=== PATIENT | female | born 1980 | race African-American/Black ===

== ENCOUNTER 2020-07-30 10:05 | Emergency (ER) | payer MEDICAID ==
--- NOTE | 2020-07-30 10:29 | EDM.PDOC ---
ED HPI GENERAL MEDICAL PROBLEM - General Chief Complaint: General Stated Complaint: MEDICAL VIA NORTH Time Seen by Provider: 07/30/20 10:30 Source of Information: Reports: Patient, RN Notes Reviewed History Limitations: Reports: No Limitations - History of Present Illness INITIAL COMMENTS - FREE TEXT/NARRATIVE: 9-year-old female discerned about the possibility of Covid represented by a constellation of complaints and symptoms going back to her daughter who recently visited [place] and came back with cold symptoms and some fever. Within the next day or 2 the patient then had cold symptoms respiratory in nature and possible fever. Thinks she also may have a change now in the last couple of days with her smell and taste although not dramatic. Her appetite is diminished but she still eats. She was at work and apparently walked up a bunch of steps at work and when she got to the top she was short of breath had some chest tightness was felt diaphoretic and weak. She regularly does this at work and today is the first time that she had these symptoms even though she is very heavy. Cardiac disease noted. No pulmonary problems. Of diabetes on Metformin. She is also hypertensive as well as obese Duration: Day(s):, Getting Worse Severity: Moderate Improves with: Reports: None Worsens with: Reports: None Context: Reports: Activity Associated Symptoms: Reports: Chest Pain, Cough, Diaphoresis, Loss of Appetite, Shortness of Breath - Related Data Allergies Allergy/AdvReac Type Severity Reaction Status Date / Time No Known Allergies Allergy Verified 07/30/20 10:16 Home Meds: Home Meds Aspirin 81 mg PO DAILY 07/30/20 [History] Furosemide 20 mg PO DAILY 07/30/20 [History] Sertraline [Zoloft] 100 mg PO BEDTIME 07/30/20 [History] metFORMIN [Glucophage] 2,000 mg PO BIDMEALS 07/30/20 [History] Past Medical History Cardiovascular History: Reports: Hypertension 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: Neurological History: Reports: Other (See Below) 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 Psychiatric History: Reports: PTSD Endocrine/Metabolic History: Reports: Diabetes, Type II Dermatologic History: Reports: Eczema - Infectious Disease History Infectious Disease History: Reports: Chicken Pox Social & Family History - Tobacco Use Tobacco Use Status *Q: Never Tobacco User - Caffeine Use Caffeine Use: Reports: Tea - Recreational Drug Use Recreational Drug Use: No ED ROS GENERAL - Review of Systems Review Of Systems: See Below Constitutional: Reports: Fever, Chills, Malaise, Weakness, Diaphoresis HEENT: Reports: No Symptoms Respiratory: Reports: Shortness of Breath Cardiovascular: Reports: Chest Pain, Blood Pressure Problem, Dyspnea on Exertion Endocrine: Reports: Fatigue GI/Abdominal: Reports: Other (She notes hunger pains but does not want to eat.) : Reports: No Symptoms Musculoskeletal: Reports: No Symptoms Skin: Reports: No Symptoms Neurological: Reports: No Symptoms Psychiatric: Reports: No Symptoms Hematologic/Lymphatic: Reports: No Symptoms ED EXAM, GENERAL - Physical Exam Exam: See Below Free Text/Narrative:: Work cooperative very heavy lady lying on her right side in no apparent distress with normal vital signs. T shows no abnormalities other than slight redness in the throat. Supple without increased nodes With a regular rate and rhythm although she is big and hard to hear anything Abdomen is soft active bowel sounds but very large and slight tenderness in the left upper quadrant Extremities are normal Nonfocal neurology exam without any deficits noted Exam Limited By: No Limitations General Appearance: Alert, WD/WN, No Apparent Distress Ears: Normal External Exam, Normal Canal, Normal TMs Nose: Normal Inspection Throat/Mouth: Normal Inspection Head: Atraumatic, Normocephalic Neck: Normal Inspection, Supple Respiratory/Chest: No Respiratory Distress, Lungs Clear, Normal Breath Sounds, No Accessory Muscle Use, Chest Non-Tender Cardiovascular: Regular Rate, Rhythm, No Edema, No Murmur GI/Abdominal: Normal Bowel Sounds, Soft, No Distention, No Mass Rectal (Female) Exam: Deferred Back Exam: Normal Inspection Extremities: Normal Inspection, Normal Range of Motion, Non-Tender, No Pedal Edema Neurological: Alert, Oriented, Normal Cognition, No Motor/Sensory Deficits Psychiatric: Normal Affect, Normal Mood Skin Exam: Warm, Dry Course - Vital Signs Text/Narrative:: -year-old obese female with diabetes and hypertension test positive for Covid. She has some shortness of breath and particular problem on exertion walking up steps today which is new for her. Generally in good health other than her hypertension diabetes and obesity. Positive Covid is noted but hospitalist and I agree that admission is not indicated at this time Last Recorded V/S: Last Vital Signs Temp 36.6 C 07/30/20 10:07 Pulse 82 07/30/20 10:07 Resp 10 L 07/30/20 10:07 BP 104/62 07/30/20 10:07 Pulse Ox 94 L 07/30/20 10:07 - Orders/Labs/Meds Orders: Active Orders 24 hr Category Date Time Status EKG Documentation Completion [RC] ASDIRECTED Care 07/30/20 11:15 Active EKG 12 Lead [EK] Stat Ther 07/30/20 11:07 Ordered Labs: Laboratory Tests 07/30/20 07/30/20 07/30/20 Range/Units 11:08 11:38 11:38 WBC 6.4 (4.5-11.0) K/uL RBC 5.29 (3.30-5.50) M/uL Hgb 14.2 (12.0-15.0) g/dL Hct 44.5 (36.0-48.0) % MCV 84 (80-98) fL MCH 27 (27-31) pg MCHC 32 (32-36) % Plt Count 167 (150-400) K/uL D-Dimer, Quantitative 488 (0.0-500.0) ng/mL ABG Hemoglobin 14.9 (12.0-16.0) g/dL ABG Oxyhemoglobin 49.0 % ABG Carboxyhemoglobin 2.5 H (0.0-1.6) % ABG Methemoglobin 1.1 % VBG pH 7.353 (7.350-7.450) VBG pCO2 48.8 mm/Hg VBG pO2 28.9 mm/Hg VBG HCO3 26.5 mmol/L VBG Total CO2 23.7 mmol/L VBG O2 Saturation 50.8 VBG O2 Content 10.2 %vol VBG Base Excess 0.7 mm/L O2 Delivery Device Room air Sodium (140-148) mmol/L Potassium (3.6-5.2) mmol/L Chloride (100-108) mmol/L Carbon Dioxide (21-32) mmol/L Anion Gap (5.0-14.0) mmol/L BUN (7-18) mg/dL Creatinine (0.6-1.0) mg/dL Est Cr Clr Drug Dosing mL/min Estimated GFR (MDRD) (>60) Glucose (74-106) mg/dL Calcium (8.5-10.1) mg/dL Total Bilirubin (0.2-1.0) mg/dL AST (15-37) U/L ALT (12-78) U/L Alkaline Phosphatase (46-116) U/L Troponin I (0.000-0.056) ng/mL Total Protein (6.4-8.2) g/dL Albumin (3.4-5.0) g/dL Globulin (2.3-3.5) g/dL Albumin/Globulin Ratio (1.2-2.2) SARS-CoV-2 RNA (MILDRED) (NEGATIVE) 07/30/20 07/30/20 Range/Units 11:38 12:12 WBC (4.5-11.0) K/uL RBC (3.30-5.50) M/uL Hgb (12.0-15.0) g/dL Hct (36.0-48.0) % MCV (80-98) fL MCH (27-31) pg MCHC (32-36) % Plt Count (150-400) K/uL D-Dimer, Quantitative (0.0-500.0) ng/mL ABG Hemoglobin (12.0-16.0) g/dL ABG Oxyhemoglobin % ABG Carboxyhemoglobin (0.0-1.6) % ABG Methemoglobin % VBG pH (7.350-7.450) VBG pCO2 mm/Hg VBG pO2 mm/Hg VBG HCO3 mmol/L VBG Total CO2 mmol/L VBG O2 Saturation VBG O2 Content %vol VBG Base Excess mm/L O2 Delivery Device Sodium 135 L (140-148) mmol/L Potassium 4.8 (3.6-5.2) mmol/L Chloride 99 L (100-108) mmol/L Carbon Dioxide 28 (21-32) mmol/L Anion Gap 12.8 (5.0-14.0) mmol/L BUN 9 (7-18) mg/dL Creatinine 1.0 (0.6-1.0) mg/dL Est Cr Clr Drug Dosing 80.50 mL/min Estimated GFR (MDRD) > 60 (>60) Glucose 334 H (74-106) mg/dL Calcium 8.2 L (8.5-10.1) mg/dL Total Bilirubin 0.4 (0.2-1.0) mg/dL AST 28 (15-37) U/L ALT 43 (12-78) U/L Alkaline Phosphatase 87 (46-116) U/L Troponin I < 0.017 (0.000-0.056) ng/mL Total Protein 7.2 (6.4-8.2) g/dL Albumin 3.0 L (3.4-5.0) g/dL Globulin 4.2 H (2.3-3.5) g/dL Albumin/Globulin Ratio 0.7 L (1.2-2.2) SARS-CoV-2 RNA (MILDRED) Positive H (NEGATIVE) Departure - Departure Time of Disposition: 13:23 Disposition: Home, Self-Care 01 Condition: Good Clinical Impression: Coronavirus infection, Shortness of breath on exertion - Discharge Information Instructions: Shortness of Breath, Adult, [id number] Additional Instructions: At home and self isolate for the next 14 days. Return here for acute onset or worsening of shortness of breath Sepsis Event Note (ED) - Evaluation Sepsis Screening Result: No Definite Risk - Focused Exam Vital Signs: Vital Signs Temp Pulse Resp BP Pulse Ox 07/30/20 10:07 36.6 C 82 10 L 104/62 94 L - My Orders Last 24 Hours: My Active Orders 07/30/20 11:07 EKG 12 Lead [EK] Stat 07/30/20 11:15 EKG Documentation Completion [RC] ASDIRECTED - Assessment/Plan Last 24 Hours: My Active Orders 07/30/20 11:07 EKG 12 Lead [EK] Stat 07/30/20 11:15 EKG Documentation Completion [RC] ASDIRECTED
--- NOTE | 2020-07-30 12:34 | CR ---
CHEST: Portable 07/30/2020 11:52 AM CLINICAL HISTORY:Pain, SOB COMPARISON:None FINDINGS: The heart size, pulmonary vascularity and hilar structures are normal. No infiltrate effusion or pneumothorax is seen. IMPRESSION: No acute cardiopulmonary process.
== END 2020-07-30 13:40 | disposition home or self-care (01) ==
LOC: JP.ED 10:05
DX: U07.1 COVID-19 (principal); R06.02 Shortness of breath; I10 Essential (primary) hypertension; E66.9 Obesity, unspecified; E11.9 Type 2 diabetes mellitus without complications; Z68.44 Body mass index [BMI] 60.0-69.9, adult; Z79.82 Long term (current) use of aspirin; Z79.899 Other long term (current) drug therapy
CPT/HCPCS: 36415; 71045; 71045-26; 80053; 82803; 84484; 85027; 85379; 93005; 93010; 99285-25; U0002

== ENCOUNTER 2020-08-01 23:31 | Emergency (ER) | payer MEDICAID ==
--- NOTE | 2020-08-02 00:11 | EDM.PDOC ---
ED HPI GENERAL MEDICAL PROBLEM - General Chief Complaint: Respiratory Problem Stated Complaint: MEDICAL VIA [facility] Time Seen by Provider: 08/02/20 00:03 - History of Present Illness INITIAL COMMENTS - FREE TEXT/NARRATIVE: Chacorta is a 39-year-old -[place] female with a history of type 2 diabetes and morbid obesity who presents to the ED for increasing shortness of breath, paroxysmal bronchospasm and coughing to the point of post tussive emesis, and increased anxiety related to a recent diagnosis of COVID-19. The patient was diagnosed with COVID-19 3 days ago and since has been having increasing episodes of coughing to the point where she feels like she is going to pass out and cannot catch her breath. An episode occurred tonight prompting her to call 911 and EMS to bring her in for evaluation. The patient endorses severe fatigue, fever and chills, headache and body aches, decreased appetite, shortness of breath and a nonproductive cough with chest tightness. Chest Pain Score (Numeric/FACES): 8 - Related Data Allergies Allergy/AdvReac Type Severity Reaction Status Date / Time No Known Allergies Allergy Verified 08/01/20 23:42 Home Meds: Home Meds Aspirin 81 mg PO DAILY 07/30/20 [History] Furosemide 20 mg PO DAILY 07/30/20 [History] Sertraline [Zoloft] 100 mg PO BEDTIME 07/30/20 [History] metFORMIN [Glucophage] 2,000 mg PO BIDMEALS 07/30/20 [History] Past Medical History HEENT History: Reports: None Cardiovascular History: Reports: Hypertension Respiratory History: Reports: None Gastrointestinal History: Reports: None Genitourinary History: Reports: None 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: Musculoskeletal History: Reports: None Neurological History: Reports: Other (See Below) 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 Psychiatric History: Reports: PTSD Endocrine/Metabolic History: Reports: Diabetes, Type II Hematologic History: Reports: None Immunologic History: Reports: None Oncologic (Cancer) History: Reports: None Dermatologic History: Reports: Eczema - Infectious Disease History Infectious Disease History: Reports: Chicken Pox - Past Surgical History HEENT Surgical History: Reports: None Social & Family History - Tobacco Use Tobacco Use Status *Q: Former Tobacco User Used Tobacco, but Quit: Yes Month/Year Tobacco Last Used: 7 years ago - Caffeine Use Caffeine Use: Reports: Tea - Recreational Drug Use Recreational Drug Use: Yes Recreational Drug Type: Reports: Marijuana/Hashish ED ROS GENERAL - Review of Systems Review Of Systems: See Below Constitutional: Reports: Fever, Chills, Malaise, Fatigue, Decreased Appetite HEENT: Reports: Throat Pain Respiratory: Reports: Shortness of Breath, Cough. Denies: Sputum Cardiovascular: Reports: Chest Pain Endocrine: Reports: Fatigue GI/Abdominal: Reports: Decreased Appetite, Nausea, Vomiting : Reports: No Symptoms Musculoskeletal: Reports: Muscle Pain Skin: Reports: No Symptoms Neurological: Reports: Headache Psychiatric: Reports: Anxiety Hematologic/Lymphatic: Reports: No Symptoms Immunologic: Reports: No Symptoms ED EXAM, GENERAL - Physical Exam Exam: See Below Exam Limited By: No Limitations General Appearance: Alert, Anxious, Mild Distress Eye Exam: Bilateral Eye: EOMI, PERRL Throat/Mouth: Normal Inspection, Normal Lips, Normal Teeth, Normal Gums, Normal Oropharynx, Normal Voice, No Airway Compromise Head: Atraumatic, Normocephalic Neck: Normal Inspection, Supple, Non-Tender, Full Range of Motion Respiratory/Chest: No Respiratory Distress, Lungs Clear, Normal Breath Sounds, No Accessory Muscle Use, Chest Non-Tender Cardiovascular: Normal Peripheral Pulses, Regular Rate, Rhythm, No Edema, No Gallop, No JVD, No Murmur Peripheral Pulses: 2+: Radial (L), Radial (R) GI/Abdominal: Normal Bowel Sounds, Soft, Non-Tender Extremities: Normal Inspection, Normal Range of Motion, Non-Tender, Normal Capillary Refill, No Pedal Edema Neurological: Alert, Oriented, CN II-XII Intact, Normal Cognition, No Motor/Sensory Deficits Psychiatric: Anxious Lymphatic: No Adenopathy Course - Vital Signs Last Recorded V/S: Last Vital Signs Temp 38.8 C H 08/02/20 01:57 Pulse 108 H 08/02/20 01:57 Resp 18 08/02/20 01:57 BP 127/67 08/02/20 01:57 Pulse Ox 94 L 08/02/20 01:57 - Orders/Labs/Meds Orders: Active Orders 24 hr Category Date Time Status Chest 1V Frontal [CR] Stat Exams 08/02/20 00:03 Taken Labs: Laboratory Tests 08/02/20 08/02/20 08/02/20 Range/Units 00:20 00:20 00:20 WBC 8.9 (4.5-11.0) K/uL RBC 5.27 (3.30-5.50) M/uL Hgb 14.1 (12.0-15.0) g/dL Hct 44.0 (36.0-48.0) % MCV 84 (80-98) fL MCH 27 (27-31) pg MCHC 32 (32-36) % Plt Count 170 (150-400) K/uL Neut % (Auto) 69 H (36-66) % Lymph % (Auto) 23 L (24-44) % [place] % (Auto) 8 H (2-6) % Eos % (Auto) 0 L (2-4) % Baso % (Auto) 0 (0-1) % Sodium 133 L (140-148) mmol/L Potassium 4.0 (3.6-5.2) mmol/L Chloride 96 L (100-108) mmol/L Carbon Dioxide 29 (21-32) mmol/L Anion Gap 12.0 (5.0-14.0) mmol/L BUN 9 (7-18) mg/dL Creatinine 1.0 (0.6-1.0) mg/dL Est Cr Clr Drug Dosing 81.89 mL/min Estimated GFR (MDRD) > 60 (>60) Glucose 297 H (74-106) mg/dL Lactic Acid 1.8 (0.4-2.0) mmol/L Calcium 8.3 L (8.5-10.1) mg/dL Total Bilirubin 0.4 (0.2-1.0) mg/dL AST 12 L (15-37) U/L ALT 31 (12-78) U/L Alkaline Phosphatase 96 (46-116) U/L C-Reactive Protein 2.03 H (0.0-0.3) mg/dL Total Protein 7.1 (6.4-8.2) g/dL Albumin 2.9 L (3.4-5.0) g/dL Globulin 4.2 H (2.3-3.5) g/dL Albumin/Globulin Ratio 0.7 L (1.2-2.2) Urine Color (YELLOW) Urine Appearance (CLEAR) Urine pH (5.0-8.0) Ur Specific [place] (1.008-1.030) Urine Protein (NEGATIVE) mg/dL Urine Glucose (UA) (NEGATIVE) mg/dL Urine Ketones (NEGATIVE) mg/dL Urine Occult Blood (NEGATIVE) Urine Nitrite (NEGATIVE) Urine Bilirubin (NEGATIVE) Urine Urobilinogen (0.2-1.0) EU/dL Ur Leukocyte Esterase (NEGATIVE) Urine RBC (0-5) Urine WBC (0-5) Ur Epithelial Cells Amorphous Sediment Urine Bacteria Urine Mucus Urine Other Urine HCG, Qual 08/02/20 08/02/20 Range/Units 02:23 02:23 WBC (4.5-11.0) K/uL RBC (3.30-5.50) M/uL Hgb (12.0-15.0) g/dL Hct (36.0-48.0) % MCV (80-98) fL MCH (27-31) pg MCHC (32-36) % Plt Count (150-400) K/uL Neut % (Auto) (36-66) % Lymph % (Auto) (24-44) % [place] % (Auto) (2-6) % Eos % (Auto) (2-4) % Baso % (Auto) (0-1) % Sodium (140-148) mmol/L Potassium (3.6-5.2) mmol/L Chloride (100-108) mmol/L Carbon Dioxide (21-32) mmol/L Anion Gap (5.0-14.0) mmol/L BUN (7-18) mg/dL Creatinine (0.6-1.0) mg/dL Est Cr Clr Drug Dosing mL/min Estimated GFR (MDRD) (>60) Glucose (74-106) mg/dL Lactic Acid (0.4-2.0) mmol/L Calcium (8.5-10.1) mg/dL Total Bilirubin (0.2-1.0) mg/dL AST (15-37) U/L ALT (12-78) U/L Alkaline Phosphatase (46-116) U/L C-Reactive Protein (0.0-0.3) mg/dL Total Protein (6.4-8.2) g/dL Albumin (3.4-5.0) g/dL Globulin (2.3-3.5) g/dL Albumin/Globulin Ratio (1.2-2.2) Urine Color Yellow (YELLOW) Urine Appearance Cloudy A (CLEAR) Urine pH 6.0 (5.0-8.0) Ur Specific [place] 1.025 (1.008-1.030) Urine Protein 100 H (NEGATIVE) mg/dL Urine Glucose (UA) 500 H (NEGATIVE) mg/dL Urine Ketones 40 H (NEGATIVE) mg/dL Urine Occult Blood Moderate H (NEGATIVE) Urine Nitrite Negative (NEGATIVE) Urine Bilirubin Negative (NEGATIVE) Urine Urobilinogen 1.0 (0.2-1.0) EU/dL Ur Leukocyte Esterase Negative (NEGATIVE) Urine RBC 0-5 (0-5) Urine WBC 5-10 H (0-5) Ur Epithelial Cells Many Amorphous Sediment Few Urine Bacteria Moderate Urine Mucus Not seen Urine Other Urine HCG, Qual Negative - Radiology Interpretation Free Text/Narrative:: Chest one-view portable: Normal cardiac silhouette. No evidence for acute infiltrates or adenopathy. Overall impression, normal chest. - Re-Assessments/Exams Free Text/Narrative Re-Assessment/Exam: 08/02/20 01:33 the patient voided and had some old blood in the urine in the form of a stringy clot. She states that she is not on her menses right now and she also mentioned to the nursing that she has been having some flank pain which is why she brought her plug-in heating pad. She failed to mention any of this to me during my interview with her when she was just focusing on her shortness of breath and fatigue related to the COVID-19. 08/02/20 03:03 urinalysis shows no sign of infection and urine test is negative. I plan is to discharge the patient with a nebulizer machine and albuterol nebs. She may use this for her shortness of breath and cough. She should continue to isolate and quarantine as she is Covid positive. There is no indications for hospitalization at this time as she is oxygenating at 96% on room air. The remainder of your labs are unremarkable as well. Indications to return to the ED were discussed and she is suitable for discharge in satisfactory condition. Departure - Departure Time of Disposition: 03:04 Disposition: Home, Self-Care 01 Clinical Impression: COVID-19, Shortness of breath, Paroxysmal cough, History of asthma Type 2 diabetes mellitus Qualifiers: Diabetes mellitus senior care insulin use: without senior care use Diabetes loi morgan complication status: without complication Qualified Code(s): E11.9 - Type 2 diabetes mellitus without complications - Discharge Information *PRESCRIPTION DRUG MONITORING PROGRAM REVIEWED*: Not Applicable *COPY OF PRESCRIPTION DRUG MONITORING REPORT IN PATIENT JC: Not Applicable Instructions: COVID-19 Frequently Asked Questions, Shortness of Breath, Adult, [id number], Asthma, Adult, COVID-19 Referrals: PCP,None [Primary Care Provider] - Forms: ED Department Discharge Care Plan Goals: We are sending you home with a nebulizer machine and and [facility] prescription for albuterol to use with the nebulizer machine. This will help when you have these episodes of coughing and shortness of breath. Sepsis Event Note (ED) - Evaluation Sepsis Screening Result: Possible Sepsis Risk - Focused Exam Vital Signs: Vital Signs Temp Pulse Resp BP Pulse Ox 08/02/20 01:57 38.8 C H 108 H 18 127/67 94 L 08/01/20 23:51 99 24 H 128/84 98 08/01/20 23:46 38.2 C H 109 H 16 129/72 96 08/01/20 23:34 38.2 C H 109 H 16 129/72 96 - My Orders Last 24 Hours: My Active Orders 08/02/20 00:03 Chest 1V Frontal [CR] Stat - Assessment/Plan Last 24 Hours: My Active Orders 08/02/20 00:03 Chest 1V Frontal [CR] Stat
--- NOTE | 2020-08-02 09:15 | CR ---
CHEST: Portable 08/02/2020 at 12:24 AM CLINICAL HISTORY:Covid positive, dyspnea COMPARISON:07/30/2020 FINDINGS: There is a generalized increase in lung markings bilaterally left greater than right. This is of mixed interstitial and alveolar pattern. Impression: Increase in lung markings bilaterally, left greater than right. This is suggestive of pneumonitis.
== END 2020-08-02 04:03 | disposition home or self-care (01) ==
LOC: JP.ED 23:31
DX: U07.1 COVID-19 (principal); E11.9 Type 2 diabetes mellitus without complications; J45.909 Unspecified asthma, uncomplicated; I10 Essential (primary) hypertension; Z87.891 Personal history of nicotine dependence; Z79.82 Long term (current) use of aspirin; Z79.899 Other long term (current) drug therapy
CPT/HCPCS: 36415; 71045; 71045-26; 80053; 81001; 81025; 83605; 85025; 86140; 99285-25

== ENCOUNTER 2020-10-23 19:37 | Emergency (ER) | payer BC, MEDICAID ==
[2020-10-23] MEDS ORDERED: Labetalol 100 MG Tab PO ONE (20:09)
--- NOTE | 2020-10-23 20:13 | EDM.PDOC ---
ED HPI GENERAL MEDICAL PROBLEM - General Chief Complaint: Cardiovascular Problem Stated Complaint: HIGH BP Time Seen by Provider: 10/23/20 20:04 Source of Information: Reports: Patient, RN Notes Reviewed History Limitations: Reports: No Limitations - History of Present Illness INITIAL COMMENTS - FREE TEXT/NARRATIVE: 40-year-old female presents emergency department a complaint of elevated blood pressure, with chest pain she states he has had problems with the blood pressure over the last 3 days she did not take her evening dose of her blood pressure medication describes her chest pain predominantly on the right side of the chest no shortness of breath no nausea no diaphoresis Chest Pain Score (Numeric/FACES): 7 - Related Data Allergies Allergy/AdvReac Type Severity Reaction Status Date / Time No Known Allergies Allergy Verified 10/23/20 19:51 Home Meds: Home Meds Aspirin 81 mg PO DAILY 07/30/20 [History] Furosemide 20 mg PO DAILY 07/30/20 [History] Sertraline [Zoloft] 100 mg PO BEDTIME 07/30/20 [History] metFORMIN [Glucophage] 2,000 mg PO BIDMEALS 07/30/20 [History] Labetalol [Normodyne] 200 mg PO BID 10/23/20 [History] Past Medical History Cardiovascular History: Reports: Hypertension 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: Neurological History: Reports: Other (See Below) 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 Psychiatric History: Reports: PTSD Endocrine/Metabolic History: Reports: Diabetes, Type II Hematologic History: Reports: None Immunologic History: Reports: None Oncologic (Cancer) History: Reports: None Dermatologic History: Reports: Eczema - Infectious Disease History Infectious Disease History: Reports: Chicken Pox, Other (See Below) Other Infectious Disease History: COVID 19 - Past Surgical History Head Surgeries/Procedures: Reports: None HEENT Surgical History: Reports: None Social & Family History - Tobacco Use Tobacco Use Status *Q: Never Tobacco User - Caffeine Use Caffeine Use: Reports: None - Recreational Drug Use Recreational Drug Use: No ED ROS GENERAL - Review of Systems Review Of Systems: See Below Constitutional: Reports: No Symptoms HEENT: Reports: No Symptoms Respiratory: Reports: No Symptoms Cardiovascular: Reports: Chest Pain, Other (Blood pressure problem) GI/Abdominal: Reports: No Symptoms ED EXAM, GENERAL - Physical Exam Exam: See Below Exam Limited By: No Limitations General Appearance: Alert, WD/WN, No Apparent Distress Respiratory/Chest: No Respiratory Distress, Lungs Clear, Normal Breath Sounds, No Accessory Muscle Use, Chest Non-Tender Cardiovascular: Regular Rate, Rhythm, No Murmur GI/Abdominal: Soft, Non-Tender Course - Vital Signs Last Recorded V/S: Last Vital Signs Temp 98.2 F 10/23/20 19:58 Pulse 82 10/23/20 21:24 Resp 24 H 10/23/20 21:24 BP 141/81 H 10/23/20 21:24 Pulse Ox 98 10/23/20 19:58 - Orders/Labs/Meds Orders: Active Orders 24 hr Category Date Time Status Cardiac Monitoring [RC] .As Directed Care 10/23/20 20:08 Active EKG Documentation Completion [RC] ASDIRECTED Care 10/23/20 20:08 Active EKG 12 Lead [EK] Stat Ther 10/23/20 20:08 Ordered Labs: Laboratory Tests 10/23/20 10/23/20 Range/Units 20:20 20:20 WBC 12.3 H (4.5-11.0) K/uL RBC 5.11 (3.30-5.50) M/uL Hgb 14.4 (12.0-15.0) g/dL Hct 43.6 (36.0-48.0) % MCV 85 (80-98) fL MCH 28 (27-31) pg MCHC 33 (32-36) % Plt Count 289 (150-400) K/uL Neut % (Auto) 66 (36-66) % Lymph % (Auto) 23 L (24-44) % [place] % (Auto) 8 H (2-6) % Eos % (Auto) 2 (2-4) % Baso % (Auto) 0 (0-1) % Sodium 136 L (140-148) mmol/L Potassium 3.8 (3.6-5.2) mmol/L Chloride 97 L (100-108) mmol/L Carbon Dioxide 27 (21-32) mmol/L Anion Gap 15.8 H (5.0-14.0) mmol/L BUN 15 D (7-18) mg/dL Creatinine 1.0 (0.6-1.0) mg/dL Est Cr Clr Drug Dosing TNP Estimated GFR (MDRD) > 60 (>60) Glucose 379 H (74-106) mg/dL Calcium 9.0 (8.5-10.1) mg/dL Total Bilirubin 0.3 (0.2-1.0) mg/dL AST 12 L (15-37) U/L ALT 32 (12-78) U/L Alkaline Phosphatase 121 H (46-116) U/L Troponin I < 0.017 (0.000-0.056) ng/mL Total Protein 7.4 (6.4-8.2) g/dL Albumin 3.1 L (3.4-5.0) g/dL Globulin 4.3 H (2.3-3.5) g/dL Albumin/Globulin Ratio 0.7 L (1.2-2.2) Meds: Medications Discontinued Medications Generic Name Dose Route Start Last Admin Trade Name Freq PRN Reason Stop Dose Admin Labetalol HCl 200 mg 10/23/20 20:09 10/23/20 21:13 Normodyne PO 10/23/20 20:10 200 mg ONETIME ONE Administration Departure - Departure Time of Disposition: 22:04 Disposition: Home, Self-Care 01 Condition: Fair Clinical Impression: Hypertension Qualifiers: Hypertension type: essential hypertension Qualified Code(s): I10 - Essential (primary) hypertension Instructions: Hypertension, Adult, [id number], Managing Your Hypertension Referrals: Isabela Sánchez PAPER PRODUCTS MACHINE OPERATOR [Primary Care Provider] - Forms: ED Department Discharge Additional Instructions: Continue taking your medications, recommend starting a blood pressure journal take your blood pressure once a day at various times and bring these recordings into your primary care doctor to review call return to the emergency department with worsening of symptoms Sepsis Event Note (ED) - Evaluation Sepsis Screening Result: No Definite Risk - Focused Exam Vital Signs: Vital Signs Temp Pulse Pulse Resp BP BP Pulse Ox 10/23/20 21:24 82 24 H 141/81 H 10/23/20 21:13 98 175/108 H 10/23/20 19:58 98.2 F 100 20 175/108 H 98 - My Orders Last 24 Hours: My Active Orders 10/23/20 20:08 Cardiac Monitoring [RC] .As Directed EKG Documentation Completion [RC] ASDIRECTED EKG 12 Lead [EK] Stat - Assessment/Plan Last 24 Hours: My Active Orders 10/23/20 20:08 Cardiac Monitoring [RC] .As Directed EKG Documentation Completion [RC] ASDIRECTED EKG 12 Lead [EK] Stat Plan: Assessment Acuity = acute Site and laterality = hypertension Etiology = unknown Manifestations = none Location of injury = Home Lab values = WBC elevated 12.3 consistent with leukocytosis, glucose elevated 378 consistent with hyperglycemia troponin negative EKG demonstrates sinus rhythm no ST elevations or depressions Plan Good improvement after taking her home dose of labetalol she does have an appointment with her primary care coming up next week she is to do a blood pressure journal and follow-up This note was dictated using [employer] voice recognition software please call with any questions on syntax or grammar.
== END 2020-10-23 22:26 | disposition home or self-care (01) ==
LOC: JP.ED 19:37
DX: I10 Essential (primary) hypertension (principal); E11.9 Type 2 diabetes mellitus without complications; Z86.16 Personal history of COVID-19; Z79.82 Long term (current) use of aspirin; Z79.899 Other long term (current) drug therapy
CPT/HCPCS: 36415; 80053; 84484; 85025; 93005; 99285; A9270

== ENCOUNTER 2021-02-01 13:58 | Emergency (ER) | payer BC, MEDICAID ==
[2021-02-01] MEDS ORDERED: HYDROmorphone 0.5 MG/0.5 ML Syringe IM ONE ×2 (14:16→15:02)
[2021-02-01] MEDS ORDERED: Diphtheria,Pertussis(Acell),Tetanus Vaccine 0.5 ML Syringe IM ONE (14:20)
[2021-02-01] MEDS ORDERED: Bacitracin Oint 1 GM U/D Packet TOP ONE (14:20)
--- NOTE | 2021-02-01 14:23 | EDM.PDOC ---
ED HPI GENERAL MEDICAL PROBLEM - General Chief Complaint: Lower Extremity Injury/Pain Stated Complaint: FELL THROUGH PORCH Time Seen by Provider: 02/01/21 14:10 Source of Information: Reports: Patient, EMS, Old Records, RN History Limitations: Reports: No Limitations - History of Present Illness INITIAL COMMENTS - FREE TEXT/NARRATIVE: 40 yo black female here via EMS after she fell through her deck boards and injured her L leg. EMS didn't notice any deformity, and she refused pain meds en route. Is asking for pain meds now that she is here. Reports pain both above and below the L leg medially. Onset: Today, Sudden Onset Date: 02/01/21 Duration: Minutes: Location: Reports: Lower Extremity, Left Quality: Reports: Ache Severity: Moderate Improves with: Reports: Rest Worsens with: Reports: Movement Context: Reports: Trauma Associated Symptoms: Reports: No Other Symptoms Treatments MEDIA ASSOCIATE: Reports: Other (see below) (none) - Related Data Allergies Allergy/AdvReac Type Severity Reaction Status Date / Time No Known Allergies Allergy Verified 02/01/21 14:17 Home Meds: Home Meds Aspirin 81 mg PO DAILY 07/30/20 [History] Furosemide 20 mg PO DAILY 07/30/20 [History] Sertraline [Zoloft] 100 mg PO BEDTIME 07/30/20 [History] metFORMIN [Glucophage] 2,000 mg PO BIDMEALS 07/30/20 [History] Labetalol [Normodyne] 200 mg PO BID 10/23/20 [History] Past Medical History HEENT History: Reports: None Cardiovascular History: Reports: Hypertension Respiratory History: Reports: None Gastrointestinal History: Reports: None Genitourinary History: Reports: None 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: Musculoskeletal History: Reports: None Neurological History: Reports: Other (See Below) 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 Psychiatric History: Reports: PTSD Endocrine/Metabolic History: Reports: Diabetes, Type II Hematologic History: Reports: None Immunologic History: Reports: None Oncologic (Cancer) History: Reports: None Dermatologic History: Reports: Eczema - Infectious Disease History Infectious Disease History: Reports: Chicken Pox, Other (See Below) Other Infectious Disease History: COVID 19 - Past Surgical History Head Surgeries/Procedures: Reports: None HEENT Surgical History: Reports: None Social & Family History - Caffeine Use Caffeine Use: Reports: None Review of Systems - Review of Systems Review Of Systems: See Below Constitutional: Reports: No Symptoms Musculoskeletal: Reports: Leg Pain (left) Skin: Reports: Wound (small wound behind the L knee) Neurological: Reports: No Symptoms ED EXAM, GENERAL - Physical Exam Exam: See Below Exam Limited By: No Limitations General Appearance: Alert, WD/WN, No Apparent Distress, Obese Extremities: Normal Inspection, No Pedal Edema, Leg Pain (distal thigh to prox tib/fib medially on left leg), Limited Range of Motion (due to pain). No: Normal Range of Motion, Non-Tender, Pedal Edema, Increased Warmth, Redness Neurological: Alert, Oriented, CN II-XII Intact, Normal Cognition, No Motor/Sensory Deficits Psychiatric: Normal Affect, Normal Mood Skin Exam: Warm, Dry, Normal Color, No Rash, Wound/Incision (small lac behind L knee) Course - Vital Signs Last Recorded V/S: Last Vital Signs Temp 35.9 C L 02/01/21 14:37 Pulse 122 H 02/01/21 14:37 Resp 15 02/01/21 14:37 BP 165/102 H 02/01/21 14:37 Pulse Ox 92 L 02/01/21 14:37 - Orders/Labs/Meds Orders: Active Orders 24 hr Category Date Time Status Vaccines to be Administered [RC] PER UNIT ROUTINE Care 02/01/21 14:20 Active Meds: Medications Discontinued Medications Generic Name Dose Route Start Last Admin Trade Name Freq PRN Reason Stop Dose Admin Bacitracin 1 dose 02/01/21 14:20 Bacitracin Oint 1 Gm U/D Packet TOP 02/01/21 14:21 ONETIME ONE Diphtheria/Tetanus/Acell Pertussis 0.5 ml 02/01/21 14:20 Diphtheria,Pertussis(Acell),Tetanus Vaccine 0.5 Ml Syringe IM 02/01/21 14:21 .ONCE ONE Hydromorphone HCl 1.5 mg 02/01/21 14:16 Hydromorphone 0.5 Mg/0.5 Ml Syringe IM 02/01/21 14:17 ONETIME ONE Hydromorphone HCl 0.5 mg 02/01/21 15:02 Hydromorphone 0.5 Mg/0.5 Ml Syringe IM 02/01/21 15:03 ONETIME ONE - Radiology Interpretation Free Text/Narrative:: L femur X-ray-neg L tib/fib X-ray-neg Departure - Departure Time of Disposition: 15:20 Disposition: Home, Self-Care 01 Condition: Fair Clinical Impression: Contusion of left leg Qualifiers: Encounter type: initial encounter Qualified Code(s): S80.12XA - Contusion of left lower leg, initial encounter Skin tear of left lower leg without complication Qualifiers: Encounter type: initial encounter Qualified Code(s): S81.812A - Laceration without foreign body, left lower leg, initial encounter - Discharge Information *PRESCRIPTION DRUG MONITORING PROGRAM REVIEWED*: No *COPY OF PRESCRIPTION DRUG MONITORING REPORT IN PATIENT JC: No Instructions: Laceration Care, Adult, Contusion, [id number] Referrals: PCP,None [Primary Care Provider] - Forms: ED Department Discharge, ED Return to Work/School Form Additional Instructions: Clean your wound twice daily with soap and water. Dry. Apply Bacitracin ointment and a new dressing. Recheck for signs of infection. For pain take acetaminophen 1000 mg every 6 hrs and if needed ibuprofen 600 mg every 6 hrs with food. Use your walker to help you get around. Sepsis Event Note (ED) - Focused Exam Vital Signs: Vital Signs Temp Pulse Resp BP Pulse Ox 02/01/21 14:37 35.9 C L 122 H 15 165/102 H 92 L - My Orders Last 24 Hours: My Active Orders 02/01/21 14:20 Vaccines to be Administered [RC] PER UNIT ROUTINE - Assessment/Plan Last 24 Hours: My Active Orders 02/01/21 14:20 Vaccines to be Administered [RC] PER UNIT ROUTINE
--- NOTE | 2021-02-01 15:04 | CR ---
Tibia Fibula Lt, CLINICAL HISTORY: Pain FINDINGS: Two views show no evidence of fracture or bone destruction. No soft tissue abnormality is seen. Impression: No fracture or osseous lesion , Femur Min 2V Lt CLINICAL HISTORY: Pain FINDINGS: No fracture or osseous lesion. IMPRESSION: Negative
== END 2021-02-01 15:43 | disposition home or self-care (01) ==
LOC: JP.ED 13:58
DX: S81.812A Laceration without foreign body, left lower leg, initial encounter (principal); I10 Essential (primary) hypertension; E11.9 Type 2 diabetes mellitus without complications; Z79.82 Long term (current) use of aspirin; Z79.84 Long term (current) use of oral hypoglycemic drugs; Z79.899 Other long term (current) drug therapy; W19.XXXA Unspecified fall, initial encounter
CPT/HCPCS: 73552; 73590; 96372; 99282; 99283; J1170

== ENCOUNTER 2023-05-01 15:34 | Emergency (ER) | payer BC, MEDICAID ==
[2023-05-01] MEDS ORDERED: Aspirin 81 MG Tab.Chew PO ONE (16:15)
[2023-05-01] MEDS ORDERED: Nitroglycerin 0.4 MG Tab.SL SL ONE (16:15)
[2023-05-01] MEDS ORDERED: Sodium Chloride 0.9% 10 ML Syringe FLUSH PRN (16:16)
[2023-05-01 16:34] LABS: BASOPHILS ABSOLUTE AUTO 0.05 K/uL (0.00-0.10); BASOPHILS PERCENT AUTO 0.5 % (0.1-1.3); EOSINOPHILS ABSOLUTE AUTO 0.29 K/uL (0.00-0.40); EOSINOPHILS PERCENT AUTO 2.8 % (0.0-5.4); HEMATOCRIT 43.8 % (34.3-46.0); HEMOGLOBIN 14.6 g/dL (11.2-15.5); IMMATURE GRAN ABSOLUTE AUTO 0.04 K/uL (0.00-0.23); IMMATURE GRAN PERCENT AUTO 0.4 % (0.0-0.7); LYMPHOCYTES ABSOLUTE AUTO 2.87 K/uL (0.8-3.3); LYMPHOCYTES PERCENT AUTO 27.4 % (11.4-47.7); MEAN CORPUSCULAR HEMOGLOBIN 27.6 pg (31.6-35.5); MEAN CORPUSCULAR HGB CONC 33.3 g/dL (31.6-35.5); MEAN CORPUSCULAR VOLUME 82.8 fL (81.4-99.0); MONOCYTES PERCENT AUTO 6.7 % (3.3-12.6); NEUTROPHILS ABSOLUTE AUTO 6.52 K/uL (1.0-7.6); NEUTROPHILS PERCENT AUTO 62.2 % (40.0-78.1); PLATELET COUNT,PLT 376 K/uL (130-375); RED BLOOD CELL COUNT 5.29 M/uL (3.77-5.24); WHITE BLOOD CELL COUNT,WBC 10.5 K/uL (3.2-11.0)
[2023-05-01 16:55] LABS: PTT,PARTIAL THROMBOPLSTIN TIME 25.5 sec (21.8-27.3)
[2023-05-01 16:58] LABS: CALCIUM 9.1 mg/dL (8.5-10.1); CREATININE 0.7 mg/dL (0.6-1.0); EST CRCL DRUG DOSING (CG) 111.65 mL/min; POTASSIUM,K 4.3 mmol/L (3.6-5.2); TROPONIN I HIGH SENSITIVITY 5.9 pg/mL (<=60.3)
[2023-05-01 17:03] LABS: ANION GAP 11.3 mmol/L (5.0-14.0)
== END 2023-05-01 17:49 | disposition home or self-care (01) ==
LOC: JP.ED 15:34
DX: R07.89 Other chest pain (principal); R61 Generalized hyperhidrosis; I10 Essential (primary) hypertension; E78.00 Pure hypercholesterolemia, unspecified; E11.9 Type 2 diabetes mellitus without complications; E66.01 Morbid (severe) obesity due to excess calories; Z68.42 Body mass index [BMI] 45.0-49.9, adult; Z86.16 Personal history of COVID-19; Z79.82 Long term (current) use of aspirin; Z79.899 Other long term (current) drug therapy; Z79.84 Long term (current) use of oral hypoglycemic drugs
CPT/HCPCS: 36415; 71045; 80048; 84484; 85025; 85379; 85610; 85730; 93005; 99285; A9270; 93010; 99283

== ENCOUNTER 2023-07-18 23:46 | Emergency (ER) | payer BC, MEDICAID ==
[2023-07-19 04:25] LABS: ANION GAP 8.5 mmol/L (5.0-14.0); CALCIUM 8.9 mg/dL (8.5-10.1); CREATININE 0.7 mg/dL (0.6-1.0); EST CRCL DRUG DOSING (CG) 111.65 mL/min
[2023-07-19 05:49] LABS: AMPHETAMINES SCREEN, URINE NEGATIVE (NEGATIVE); BARBITURATE SCREEN,URINE NEGATIVE (NEGATIVE); BENZODIAZEPINES SCREEN,URINE NEGATIVE (NEGATIVE); METHAMPHETAMINES SCREEN, URINE NEGATIVE (NEGATIVE)
[2023-07-19 05:50] LABS: METHADONE SCREEN, URINE NEGATIVE (NEGATIVE); OXYCODONE SCREEN,URINE NEGATIVE (NEGATIVE); PROPOXYPHENE SCREEN,URINE NEGATIVE (NEGATIVE); THC SCREEN,URINE 50 NG/ML NEGATIVE (NEGATIVE)
== END 2023-07-19 12:30 ==
LOC: JP.ED 23:46
DX: F32.A Depression, unspecified (principal); R45.851 Suicidal ideations; I10 Essential (primary) hypertension; E78.00 Pure hypercholesterolemia, unspecified; E11.9 Type 2 diabetes mellitus without complications; Z20.822 Contact with and (suspected) exposure to COVID-19; Z86.16 Personal history of COVID-19; Z79.82 Long term (current) use of aspirin; Z79.899 Other long term (current) drug therapy
CPT/HCPCS: 36415; 80048; 80143; 80179; 80305-QW; 80307; 99285; U0002